=== PATIENT | female | born 1935 | race Caucasian/White ===

== ENCOUNTER 2017-12-14 09:36 | Observation (INO) | payer OTHER ==
[~2017-12-14] VITALS: Ht 167.6 cm; Wt 81.2 kg
[2017-12-14] VITALS (16 sets, daily range): BP systolic 88–155; BP diastolic 58–87
--- NOTE | ~2017-12-14 | H ---
[address] [address] HISTORY AND PHYSICAL Name: NATALIE YANEZ Room: [address] Pamela Frey#: [id number] Admission: 12/14/17 Attend Phys: Molina Jonas MD, Discharge: 12/15/17 Date of : 39 Report #: [id number] THIS REPORT FOR: //name// Please refer to the History and Physical performed in the physician's office. By: [id number] Records Staff RASHMI /CLAIRE
[~2017-12-14 09:36] MED LIST: ANORO ELLIPTA1 EACH; ASPIR 8181 MG PO; ATORVASTATIN CA40 MG PO; BENAZEPRIL HCL40 MG PO; BIOTIN1 MG PO; EFFIENT10 MG PO; EYE VITAMIN-MI1 EACH PO; FISH OIL 1,001000 M2 PO; IMDUR 30 MG TAB30 M1 PO; LEFLUNOMIDE 1010 MG PO; MAXZIDE-25 MG1 EACH PO; MEDROLDOSEPACK PO; NITROGLYCERIN0.4 MG SUBLING; OXYBUTYNIN 5 MG5 M2 PO; VENTOLIN HFA 1818 GM INH; VERAPAMIL ER240 M1 PO; VITAMIN D3400 UNIT PO; VITAMINC500 PO
[2017-12-14 10:34] LABS: HEMOGLOBIN 12.6 gm/dL (12.0-15.0); MCH 29.4 pg (26.0-34.0); MCHC 32.3 g/dL (28.0-37.0); MCV 90.9 fL (80.0-100.0); MPV 7.9 fl. (7.2-11.1); RBC 4.29 mil/uL (4.20-5.00); RDW-CV 16.3 % (10.5-14.5)
[2017-12-14 10:48] LABS: APTT 20.4 Seconds (25.0-31.3)
[2017-12-14 10:51] LABS: ANION GAP 6 mmol/L (7-16); BUN 30 mg/dL (7-18); CHLORIDE 104 mmol/L (98-107); CO2 31 mmol/L (21-32); CREATININE 1.1 mg/dL (0.6-1.3); GLUCOSE 147 mg/dL (70-99); POTASSIUM 4.4 mmol/L (3.5-5.1); SODIUM 141 mmol/L (136-145)
[2017-12-14 10:55] LABS: ALBUMIN 3.2 g/dL (3.4-5.0); ALKALINE PHOSPHATASE 50 U/L (46-116); CHOLESTEROL 199 mg/dL (<200); HDL CHOLESTEROL 105 mg/dL (>40); LDL CHOLESTEROL 75 mg/dL (<100); SGOT 21 U/L (15-37); SGPT 41 U/L (30-65); TC:HDL 1.9 Ratio (Not establshd); TOTAL BILIRUBIN 0.4 mg/dL (<0.1-1.0); TOTAL PROTEIN 7.1 g/dL (6.4-8.2); TRIGLYCERIDE 95 mg/dL (<150); VLDL 19 mg/dL (<40)
[2017-12-14 10:57] LABS: SERUM ASSESSMENT Clear
--- NOTE | 2017-12-14 16:37 | EKG ---
[place] [address] ELECTROCARDIOGRAM REPORT Name: NATALIE YANEZ Room: [address] IN .R.#: [id number] Admission: 12/14/17 Attend Phys: Molina Jonas MD, Discharge: Date of : 39 Report #: [id number] THIS REPORT FOR: //name// 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
--- NOTE | 2017-12-14 16:38 | EKG ---
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
--- NOTE | 2017-12-14 18:07 | NUR ---
PT ARRIVED TO ROOM 200 VIA CART FROM CUSTOMER SERVICE ANALYST AT 1315. PT ASSESSMENT CHARTED. VSS. 2/2 PULSES. CARDIAC CATH SITE CD&I. PT INSTRUCTED TO LAY FLAT FOR 6 HOURS AND IMMOBILIZE LEFT LOWER EXTREMITY. PT VOICED UNDERSTANDING. PT HAS TOLERATED PO INTAKE AND AT 100% OF HER DINNER. NO COMPLAINTS OF NAUSEA OR VOMITTING AT THIS TIME. PT CAN SIT UP AT 1915. WILL CONTINUE TO MONITOR.
[2017-12-15] VITALS: BP 146/73
[2017-12-15 04:00] VITALS: BP 157/81
--- NOTE | 2017-12-15 04:42 | NUR ---
END SHIFT: PT RESTED WELL. NO COMPLAINTS. NO PAIN. NSR ON MONITOR. GROIN SITE CDI. 2+ PEDAL PULSES. IVF INFUSING WITHOUT DIFFICULTY. PT AWAITING DC HOME TODAY. SAFETY PRECAUTIONS IN PLACE. CALL LIGHT IN REACH. PERFORMED HOURLY ROUNDING. WILL CONT TO MONITOR.
[2017-12-15 05:02] LABS: HEMATOCRIT 35.7 % (37.0-47.0); HEMOGLOBIN 11.4 gm/dL (12.0-15.0); MCH 29.1 pg (26.0-34.0); MPV 7.9 fl. (7.2-11.1); RBC 3.92 mil/uL (4.20-5.00); RDW-CV 16.5 % (10.5-14.5); WBC 13.3 thou/uL (4.0-11.0)
[2017-12-15 05:46] LABS: ALBUMIN 2.7 g/dL (3.4-5.0); ALKALINE PHOSPHATASE 43 U/L (46-116); ANION GAP 3 mmol/L (7-16); BUN 23 mg/dL (7-18); CALCIUM 8.5 mg/dL (8.5-10.1); CHLORIDE 107 mmol/L (98-107); CO2 33 mmol/L (21-32); CREATININE 0.9 mg/dL (0.6-1.3); GLUCOSE 84 mg/dL (70-99); POTASSIUM 3.9 mmol/L (3.5-5.1); SGOT 21 U/L (15-37); SGPT 36 U/L (30-65); SODIUM 143 mmol/L (136-145); TOTAL BILIRUBIN 0.4 mg/dL (<0.1-1.0); TROPONIN-I LEVEL <0.06 ng/mL (<0.06)
[2017-12-15 08:00] VITALS: BP 155/80
[2017-12-15 08:36] VITALS: BP 155/80
[2017-12-15] MEDS ORDERED: EFFIENT10 MG PO (08:51)
--- NOTE | 2017-12-15 11:10 | NUR ---
ASSUMED CARE OF PT AT 0715. PT REMAINS A&O X4 CALM AND COOPERATIVE. PT HAS NO C/O PAIN OR DISCOMFORT. PT IS DISCHARGING HOME TODAY AND VERBALIZED UNDERSTANDING OF DISCHARGE INSTRUCTIONS THAT INCLUDED MEDICATION TEACHING WELL F/U CARE. PT TOO ALL PRESCRIPTIONS AND ALL PERSONAL BELONGINGS AT TIME OF DISCHARGE. MEDICATIONS WERE ADMINISTERED PER SEP AND HOURLY ROUNDING COMPLETED FOR COMFORT AND SAFTEY.
--- NOTE | 2017-12-16 17:04 | EKG ---
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
--- NOTE | 2017-12-17 11:12 | CARD ---
[address] [address] CARDIAC CATH REPORT Name: NATALIE YANEZ Isaac Room: [address] Pamela Frey#: [id number] Admission: 12/14/17 Attend Phys: Molina Jonas MD, Discharge: 12/15/17 Date of : 39 Report #: [id number] THIS REPORT FOR: //name// APPROVED REPORT Study performed: 12/14/2017 11:14:24 Patient Details Patient Status: Out-Patient Room #: 200 The patient is a 82 year-old female Event Personnel Molina Jonas Site Operations Manager, Natalia Loredo RN Workers' Compensation Hearings Officer, Gayathri Garcia RTR Monitor, Rayne Rodriguez Langston, Anthony ARRT (R) Monitor Procedures Performed Art Access - L femoral artery* , Left Heart CatheterizationDES Place w/wo Plasty Single CIRC [id number] PTCA Single Vessel OM [id number] PCISINGLE Hemostasis w/ Angioseal , Left Ventriculogram; left heart catheterization with selective coronary arteriography, PTCA with Stenting Indication Positive stress test Risk Factors Hypercholesterolemia, Hypertension Previous Procedures/Diagnoses Previous PCI Admission/Lab Medications/Medications given during procedure Aspirin, Platelet Aff. Inhib., Angiomax bolus and infusion Procedure Narrative The patient was brought electively to the Cardiac Catheterization Laboratory and was prepped and draped in a sterile manner. The left femoral was infiltrated with 2% Lidocaine subcutaneous anesthesia. A Townley 6 FR sheath was inserted into the left femoral artery. Coronary angiography was performed using coronary diagnostic catheters. The right coronary system was accessed and visualized with a Diagnostic 6fr JR 4 catheter. The left coronary system was accessed and visualized with a Diagnostic 6fr JL 4 catheter. The left ventricle was accessed and visualized with a Diagnostic 6[place] [address] CARDIAC CATH REPORT Name: NATALIE YANEZ Room: [address] Pamela Frey#: [id number] Admission: 12/14/17 Attend Phys: Molina Jonas MD, Discharge: 12/15/17 Date of : 39 Report #: [id number] catheter. Left ventricular/Aortic Valve gradient assessed via catheter pullback. Left ventriculogram was performed in TEE projection. Pre-demployment femoral angiogram was performed . Closure device was deployed with a 6 Fr Angioseal STS 6Fr. The patient tolerated the procedure well and there were no complications associated with the procedure. There was no hematoma. Intraoperative Conscious Sedation Sedation start time: 11:28 Case end Time: 12:19 Fentanyl 25 mcg Versed 1 mg Fluoro Time: 14.2 minutes Dose: DAP [id number] cGycm2 1826 mGy Contrast Type and Amount: Visipaque 320 ml Diagnostic Cath Left Main 0% narrowing LAD 30% mid vessel narrowing Circumflex Prominent though nondominant vessel with 90% mid vessel stenosis and 80% ostial second marginal narrowing Right Coronary Large dominant right coronary artery with 40% mid vessel in-stent narrowing Left Ventriculography The left ventricle is normal in size with normal contractility. The left ventricular ejection fraction is estimated to be 65%. Left ventricular wall motion abnormalities are not present. There is no mitral insufficiency. Hemodynamics The aortic pressure is 104/51 mmHg with a mean of mmHg. The left ventricular pressure is 107/4 mmHg with a mean of mmHg. The left ventricular end diastolic pressure is 11 mmHg. There was no gradient across the aortic valve upon pullback. Pullback from the left ventricle to the aorta revealed no gradient across the aortic valve. PCI Technique Lesion Percutaneous coronary intervention was performed on the mid circumflex artery segment. The lesion stenosis prior to intervention was 90% with EMETERIO 3 flow. A 6FR XB 3.5 100CM Guide Catheter was used to engage the ostium. A IG: ProwaterFlex 180CM Interventional Guidewire was used to cross the [place] [address] CARDIAC CATH REPORT Name: NATALIE YANEZ Room: [address] Shante#: [id number] Admission: 12/14/17 Attend Phys: Molina Jonas MD, Discharge: 12/15/17 Date of : 39 Report #: [id number] A Balloon catheter Trek RX 2.25 X 12 was inserted and inflated up to 12.00atm for 17seconds. Additional Inflation: 14.00atm for 16seconds. STENT DEPLOYMENT A drug-eluting stent Xience Alpine RX 2.25X15 was inserted and inflated up to 10.00atm for 21seconds. Additional Inflation: 12.00atm for 11seconds. Additional Inflation: 14.00atm for 11seconds. Final angiography reveals 0 % stenosis with EMETERIO 3 flow. PCI Technique Lesion 2 Percutaneous Coronary Intervention was performed on the first obtuse marginal branch segment. The lesion stenosis prior to intervention was 80% with EMETERIO 3 flow. A 6FR XB 3.5 100CM Guide Catheter was used to engage the ostium. A IG: BMW 190cm Interventional Guidewire was used to cross the lesion. Balloon Dilation A Balloon catheter NC Trek RX 2.25 X 8 was inserted and inflated up to 12.00atm for 14seconds. Additional Inflation: 15.00atm for 10seconds. Additional Inflation: 17.00atm for 18seconds. Final angiography reveals 20 % stenosis with EMETERIO 3 flow. Conclusion #1 significant coronary artery disease characterized by the following: A 30% mid LAD narrowing B 90% midcircumflex stenosis with 80% ostial second marginal narrowing C large dominant right coronary artery with 40% mid vessel in-stent narrowing #2 normal left ventricular systolic function, estimated ejection fraction 65% #3 successful percutaneous coronary intervention with deployment of drug-eluting stent at site of 90% mid circumflex stenosis with 0% residual narrowing and EMETERIO-3 flow to the distal vessel #4 successful percutaneous transluminal coronary angioplasty at the [address] [address] CARDIAC CATH REPORT Name: BEAUFARRAHNATALIE R Room: [address] Pamela Frey#: [id number] Admission: 12/14/17 Attend Phys: Molina Jonas MD, Discharge: 12/15/17 Date of : 39 Report #: [id number] site of 80% ostial second marginal narrowing with 20% residual narrowing following final dilatation and EMETERIO-3 flow to the distal vessel Recommendations Cardiac Risk Reduction Program Aggressive Medical Therapy Medications Administered Aspirin (any) Prasugrel Diagnostic Cath Approved by: Molina Jonas MD Date/Time: 12/17/17 at 1111 hrs. <ELECTRONICALLY SIGNED> By: Molina Jonas MD, FACC 12/17/17 1111 1111 1111Jochuy Jonas MD, FACC /INF
--- NOTE | 2017-12-17 11:31 | D ---
[address] [address] DISCHARGE SUMMARY Name: NATALIE YANEZ Room: [address] Pamela Frey#: [id number] Admission: 12/14/17 Attend Phys: Molina Jonas MD, Discharge: 12/15/17 Date of : 39 Report #: [id number] THIS REPORT FOR: //name// CC: Lucila Jonas DATE OF SERVICE: 12/15/2017 FINAL DISCHARGE DIAGNOSES: 1. Abnormal nuclear stress test. 2. Angina. 3. Coronary artery disease. 4. Status post percutaneous coronary intervention to the circumflex. 5. Status post remote percutaneous coronary intervention to the right coronary artery. 6. Hyperlipoproteinemia. 7. Hypertension. PROCEDURES: On 12/14/2017 -- left heart catheterization, left ventriculography, selective coronary arteriography and percutaneous coronary intervention to the circumflex. The patient is a very pleasant and active 82-year-old female with a history of coronary artery disease, status post prior stenting of the circumflex and right coronary arteries. She presented with increased dyspnea on exertion and abnormal stress test with inducible anterolateral ischemia. In the context of her risk factors, which include hypertension, hyperlipidemia and known coronary artery disease, I elected to proceed with cardiac catheterization on 12/14/2017, which revealed 90% focal mid circumflex in-stent restenosis with 70% narrowing at the ostium of the marginal branch that emanated from the mid circumflex. I dilated the ostium of the marginal branch and stented the mid circumflex utilizing a 2.25 x 15 mm Xience Alpine drug-eluting stent deployed in the mid circumflex with 0% residual narrowing. After dilatation of the ostium of the marginal through the stent, there was 20-30% residual narrowing of that dilated marginal branch. There was EMETERIO 3 flow of both distal circulations. The patient did well post-procedurally and there was good hemostasis at the left femoral site of catheterization. LABORATORY: On 12/15, revealed sodium 143, potassium 3.9, BUN 23, creatinine 0.9, hemoglobin 11.4, white blood cell count 13,300 with 177,000 platelets. Troponin was less [place] 0.06. [place] [address] DISCHARGE SUMMARY Name: NATALIE YANEZ Room: [address] Pamela Frey#: [id number] Admission: 12/14/17 Attend Phys: Molina Jonas MD, Discharge: 12/15/17 Date of : 39 Report #: [id number] The patient ambulated in the halls without difficulty and was discharged to home on 12/15/2017 on the following medications: Aspirin 81 mg daily, atorvastatin 80 mg daily, benazepril 40 mg daily, cholecalciferol 400 units daily, fish oil 1000 mg daily, isosorbide mononitrate 30 mg daily, leflunomide 10 mg daily, prasugrel or Effient 10 mg daily with a 60 mg periprocedural loading dose, verapamil sustained release 240 mg b.i.d. and vitamins A, C and E one tablet daily. She is scheduled to return to see me on 01/04/2018 at 14:20 at the [facility] office and her continuing care will be with Dr. Lucila Silver. Thus, the patient is discharged to home in stable condition on the aforementioned medications with followup as iterated above. <ELECTRONICALLY SIGNED> By: Molina Jonas MD, FACC 12/17/17 1131 0826 0911Molina Jonas MD, FACC /nt
== END 2017-12-15 11:16 | disposition home or self-care (01) ==
LOC: M.CL 09:36 → M.2W 11:55 → M.TBA-CV 11:55 → M.2W 11:55
PROVIDERS: ADMIT Internal Medicine
DX: I25.119 Atherosclerotic heart disease of native coronary artery with unspecified angina pectoris (principal); I10 Essential (primary) hypertension; E78.5 Hyperlipidemia, unspecified